=== PATIENT | female | born 2005 | race Two or more races ===

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

== ENCOUNTER 2025-05-18 18:09 | Emergency (ER) | payer OTHER ==
[~2025-05-18] VITALS: Ht 167.6 cm; Wt 75.0 kg
[~2025-05-18 18:09] MED LIST: CIPR1DRO2 LEFT EAR; NAPR-681 PO
[2025-05-18 18:25] VITALS: O2SAT 99
[2025-05-18 18:34] VITALS: BP 141/90; PULSE 130; RESP 18; TEMP 36.8; O2SAT 100
[2025-05-18] MEDS ORDERED: SODIUM CHLORIDE 0.9% 1,000 ML IV ONE (19:45)
[2025-05-18 20:21] LABS: CLARITY URINE CLOUDY (CLEAR); COLOR URINE YELLOW (YELLOW); GLUCOSE URINE 3+ (NEGATIVE); KETONES URINE 1+ (NEGATIVE); LEUKOCYTE ESTERASE URINE 2+ (NEGATIVE); NITRITE URINE NEGATIVE (NEGATIVE); OCCULT BLOOD URINE 2+ (NEGATIVE); PH URINE 6.5 (4.5-8.0); PROTEIN URINE TRACE (NEGATIVE); SPECIFIC GRAVITY URINE 1.037 (1.005-1.030); UROBILINOGEN URINE 0.2 E.U./dL (0.2-1.0)
[2025-05-18 20:45] LABS: BACTERIA URINE 1+; RBC URINE 25-50 /hpf (0-2); SQUAMOUS EPITHELIAL CELL URINE 1+ /lpf (RARE/1+)
[2025-05-18] MEDS ORDERED: PHEN-815 MT (21:22)
[2025-05-18] MEDS ORDERED: TOPUD MT (21:22)
[2025-05-18] MEDS ORDERED: CEPH500T MT (21:22)
== END 2025-05-18 22:37 | disposition home or self-care (01) ==
LOC: ER 18:09
DX: N39.0 Urinary tract infection, site not specified (principal); Z79.899 Other long term (current) drug therapy
CPT/HCPCS: 99283; 81003; 81025; 87210; J7030